=== PATIENT | male | born 1990 | race Caucasian/White ===

== ENCOUNTER 2021-12-07 10:57 | Emergency (ER) | payer OTHER ==
[2021-12-07 11:29] VITALS: BP 112/73; PULSE 91; RESP 17; TEMP 98.2; BMI 26.6
== END 2021-12-07 13:16 | disposition home or self-care (01) ==
LOC: JERFT 10:57
DX: S93.402A Sprain of unspecified ligament of left ankle, initial encounter (principal); X50.0XXA Overexertion from strenuous movement or load, initial encounter
CPT/HCPCS: 73610-TC-LT-FY; 73630-TC-LT; 99283-25